=== PATIENT | male | born 1975 ===

== ENCOUNTER 2016-05-19 10:57 | Day surgery (SDC) | payer SELFPAY ==
[2016-05-19 12:22] VITALS: BMI 29.2
[2016-05-19] MEDS ORDERED: Lactated Ringer's 500 ML IV ONE (12:27)
[2016-05-19] MEDS ORDERED: Propofol 10 mg/ml Inj (20 ML) ONE (13:15)
[2016-05-19 14:04] VITALS: TEMP 97
[2016-05-19 14:10] VITALS: BP 101/67; PULSE 63; RESP 17; O2SAT 99
== END 2016-05-19 14:15 | disposition home or self-care (01) ==
LOC: H.ENDO 10:57
PROVIDERS: ATTEND Internal Medicine Gastroenterology
DX: K57.41 Diverticulitis of both small and large intestine with perforation and abscess with bleeding (principal); Z93.3 Colostomy status; K64.8 Other hemorrhoids; Z01.818 Encounter for other preprocedural examination; K44.9 Diaphragmatic hernia without obstruction or gangrene; K29.70 Gastritis, unspecified, without bleeding; R10.13 Epigastric pain

== ENCOUNTER 2016-07-01 05:57 | Inpatient (IN) | payer SELFPAY ==
[2016-06-26 09:49] VITALS: BMI 28.8
[2016-07-01] MEDS ORDERED: Lactated Ringer's 1,000 ML IV ONE ×4 (06:50→10:30)
[2016-07-01] MEDS ORDERED: Propofol 10 mg/ml Inj (20 ML) ONE ×3 (07:09→09:00)
[2016-07-01] MEDS ORDERED: ePHEDrine 50 mg/ml Inj ONE (07:09)
[2016-07-01] MEDS ORDERED: Lidocaine 4% (Laryng-O-Jet) Kit MM ONE (07:11)
[2016-07-01] MEDS ORDERED: Rocuronium 10 mg/ml (5 ml) ONE ×2 (07:11→08:54)
[2016-07-01] MEDS ORDERED: Succinylcholine 200 mg/10 ml Inj IV ONE (07:11)
[2016-07-01] MEDS ORDERED: Midazolam 2 MG/2 ML VIAL ONE (07:11)
[2016-07-01] MEDS ORDERED: Bupivacaine 0.5% Inj(30mL) ONE (07:18)
[2016-07-01] MEDS ORDERED: Lidocaine 1% Inj (20ml) ONE (07:18)
[2016-07-01] MEDS ORDERED: metroNIDAZOLE 500mg/100ml NS 100 ML IVPB ONE (07:46)
[2016-07-01] MEDS ORDERED: metroNIDAZOLE 500mg/100ml NS IVPB ONE ×2 (07:50→07:55)
[2016-07-01] MEDS ORDERED: Dexamethasone 4 mg/1 ml ONE (08:07)
[2016-07-01] MEDS ORDERED: Neostigmine Methylsulfate 3mg/3ml Syringe IV ONE (09:48)
[2016-07-01] MEDS ORDERED: HYDROmorphone 0.5 mg/0.5 ml ISec ONE (10:48)
[2016-07-01] MEDS ORDERED: Sodium Chloride 0.9% 1,000 ML IV ONE (10:51)
[2016-07-01] MEDS ORDERED: Lactated Ringer's 1,000 ML IV SCH ×2 (10:54→11:00)
[2016-07-01] MEDS ORDERED: HYDROmorphone 0.5 mg/0.5 ml ISec IVP PRN (10:54)
[2016-07-01] MEDS: HYDROmorphone 0.5 mg/0.5 ml ISec IVP PRN ×6 (10:55→11:50)
[2016-07-01] MEDS ORDERED: Naloxone 0.4 mg/ml Inj (Adult) IVP PRN (10:56)
[2016-07-01] MEDS ORDERED: DiphenhydrAMINE 50 mg/ml Inj ONE (11:55)
[2016-07-01] MEDS ORDERED: DiphenhydrAMINE 50 mg/ml Inj IVP ONE (12:00)
--- NOTE | 2016-07-01 12:49 | PCM.SURG1 ---
Surgeon's Initial Post Op Note - Surgeon's Notes Surgeon: Dr Verduzco Social Secretary: Dr Deluna, Dr Slaughter PGY2, Dr Clark PGY1 Type of Anesthesia: General Endo Pre-Operative Diagnosis: s/p Bear's Operative Findings: see report Post-Operative Diagnosis: s/p colostomy reversal Operation Performed: reversal of Bear's procedure Specimen/Specimens Removed: colostomy Estimated Blood Loss: EBL {In ML}: 100 Blood Products Given: N/A Drains Used: No Drains Post-Op Condition: Good Date of Surgery/Procedure: 07/01/16 Time of Surgery/Procedure: 12:48
[2016-07-01 16:13] LABS: EOS % 0.1 % (0.0-4.0); HEMATOCRIT 39.8 % (35.0-51.0); LYMPH # 0.5 K/uL (1.0-4.3); MEAN CELL VOLUME 84.4 fl (80.0-94.0); MEAN CORPUSCULAR HEMOGLOBIN 29.2 pg (27.0-31.0); MEAN CORPUSCULAR HGB CONC 34.6 g/dL (33.0-37.0); MONO # 0.3 K/uL (0.0-0.8); MONO % 2.6 % (0.0-10.0); NEUT # 10.7 K/uL (1.8-7.0); NEUT % 93.3 % (50.0-75.0); PLATELET COUNT 197 K/uL (130-400); RED CELL DISTRIBUTION WIDTH 13.3 % (11.5-14.5); WHITE BLOOD COUNT 11.4 K/uL (4.8-10.8)
[2016-07-01 18:57] LABS: NEUTROPHIL 85 % (42-75); TOTAL CELLS COUNTED 100
[2016-07-02] MEDS ORDERED: metroNIDAZOLE 500mg/100ml NS 100 ML IVPB SCH (01:00)
[2016-07-02] MEDS ORDERED: ceFAZolin 2 GM in Sodium Chloride 0.9% 100 ML IVPB SCH (01:00)
[2016-07-02 07:41] LABS: ALB/GLOB RATIO 1.4 (1.0-2.1); ALKALINE PHOSPHATASE 52 U/L (38-126); ALT/SGPT 54 U/L (21-72); AST/SGOT 38 U/L (17-59); BILIRUBIN,TOTAL 0.9 mg/dl (0.2-1.3); BLOOD UREA NITROGEN 16 mg/dl (9-20); CALCIUM 8.4 mg/dL (8.4-10.2); CARBON DIOXIDE 26 mmol/L (22-30); CHLORIDE 100 mmol/L (98-107); GFR AFRICAN-AMERICAN > 60; GLUCOSE,RANDOM 93 mg/dL (75-110); POTASSIUM 4.1 MMOL/L (3.6-5.0); SODIUM 137 mmol/l (132-148); TOTAL PROTEIN 6.3 G/DL (6.3-8.2)
[2016-07-02] MEDS ORDERED: DiphenhydrAMINE 50 mg/ml Inj ONE ×2 (09:00→21:10)
[2016-07-02] MEDS ORDERED: Enoxaparin 40 mg Syringe ONE (09:00)
[2016-07-03] MEDS: Dextrose 5%/0.45% NS 1,000 ML IV SCH ×3 (04:12→20:40)
[2016-07-03] MEDS: DiphenhydrAMINE 50 mg/ml Inj IVP PRN ×3 (04:31→20:36)
[2016-07-03 07:34] LABS: BASO % 0.4 % (0.0-2.0); EOS # 0.2 K/uL (0.0-0.7); EOS % 2.7 % (0.0-4.0); HEMATOCRIT 34.7 % (35.0-51.0); LYMPH # 1.9 K/uL (1.0-4.3); LYMPH % 22.9 % (20.0-40.0); MEAN CELL VOLUME 85.3 fl (80.0-94.0); MEAN CORPUSCULAR HEMOGLOBIN 29.5 pg (27.0-31.0); MEAN CORPUSCULAR HGB CONC 34.5 g/dL (33.0-37.0); MEAN PLATELET VOLUME 7.9 fl (7.2-11.7); MONO # 0.8 K/uL (0.0-0.8); MONO % 9.8 % (0.0-10.0); NEUT # 5.2 K/uL (1.8-7.0); NEUT % 64.2 % (50.0-75.0); RED CELL DISTRIBUTION WIDTH 13.6 % (11.5-14.5); WHITE BLOOD COUNT 8.1 K/uL (4.8-10.8)
[2016-07-03 07:50] LABS: ALB/GLOB RATIO 1.3 (1.0-2.1); ALKALINE PHOSPHATASE 49 U/L (38-126); ALT/SGPT 48 U/L (21-72); AST/SGOT 31 U/L (17-59); BILIRUBIN,TOTAL 0.9 mg/dl (0.2-1.3); BLOOD UREA NITROGEN 11 mg/dl (9-20); CALCIUM 7.9 mg/dL (8.4-10.2); CARBON DIOXIDE 28 mmol/L (22-30); CHLORIDE 100 mmol/L (98-107); GFR AFRICAN-AMERICAN > 60; GLUCOSE,RANDOM 97 mg/dL (75-110); POTASSIUM 3.5 MMOL/L (3.6-5.0); SODIUM 137 mmol/l (132-148); TOTAL PROTEIN 5.8 G/DL (6.3-8.2)
[2016-07-03] MEDS ORDERED: Potassium Chloride 20 mEq ER Tab PO ONE (08:02)
--- NOTE | 2016-07-03 08:06 | CP.PCM.PN ---
<Elise Estrella - Last Filed: 07/03/16 08:03> Subjective - Date & Time of Evaluation Date of Evaluation: 07/02/16 Time of Evaluation: 08:03 - Subjective Subjective: General Surgery - Dr. Verduzco Pt S&E. JURGEN. Pt complains of abdominal pain this morning, states he was afraid to use INDUSTRIAL ROOF PLUMBER as it was making him itchy. Benadryl ordered and pt. encouraged to use INDUSTRIAL ROOF PLUMBER if having pain. He denies any N/V, F/C, SOB/Cp. Amaya had 2000cc urine overnight. Objective - Vital Signs/Intake and Output Vital Signs (last 24 hours): Temp Pulse Resp BP Pulse Ox 98.5 F 81 18 102/64 96 07/03/16 07:49 07/03/16 07:49 07/03/16 07:49 07/03/16 07:49 07/03/16 07:49 - Medications Medications: Current Medications Diphenhydramine HCl (Benadryl) 25 mg IVP Q6 PRN PRN Reason: Itching / Pruritus Last Admin: 07/03/16 04:31 Dose: 25 mg Enoxaparin Sodium (Lovenox) 40 mg SC DAILY ANTONIO PRN Reason: Protocol Hydromorphone HCl (Dilaudid 0.2 Mg/Ml Filenet P8 Developer) 0 mg IV PRN PRN; Protocol PRN Reason: Pain, moderate (4-7) Stop: 07/03/16 10:10 Last Admin: 07/03/16 05:48 Dose: 6 mg Dextrose/Sodium Chloride (Dextrose 5%/0.45% Ns 1000 Ml) 1,000 mls @ 125 mls/hr IV .Q8H [facility] Stop: 07/04/16 03:17 Last Admin: 07/03/16 04:12 Dose: 125 mls/hr Ketorolac Tromethamine (Toradol) 30 mg IVP Q6 ANTONIO Naloxone HCl (Narcan) 0.1 mg IVP Q2M PRN PRN Reason: Opiate reversal Ondansetron HCl (Zofran Inj) 4 mg IVP Q4 PRN PRN Reason: Nausea/Vomiting Potassium Chloride (K-Dur 20 Meq Er Tab) 40 meq PO ONCE ONE Stop: 07/03/16 08:03 - Labs Labs: 07/03/16 06:50 07/03/16 06:50 - Constitutional Appears: No Acute Distress - Head Exam Head Exam: ATRAUMATIC - ENT Exam ENT Exam: Mucous Membranes Moist - Respiratory Exam Respiratory Exam: NORMAL BREATHING PATTERN. absent: Respiratory Distress - Cardiovascular Exam Cardiovascular Exam: REGULAR RHYTHM - GI/Abdominal Exam GI & Abdominal Exam: Soft, Tenderness (pelvic, appropriately). absent: Distended, Guarding, Rigid, Rebound - Neurological Exam Neurological Exam: Alert, Oriented x3 - Psychiatric Exam Psychiatric exam: Normal Affect, Normal Mood - Skin Skin Exam: Dry, Intact Assessment and Plan - Assessment and Plan (Free Text) Assessment: 41 yo m POD #1 s/p Colostomy reversal -Clear liquid diet -D/C Amaya -Renew INDUSTRIAL ROOF PLUMBER for pain and Benadryl prn for itching -IVF switched to D5 1/2 NS @125/hr -Lovenox -Encourage OOB/Incentive Spirometer DW Dr Luba Estrella PGY2 <Fazal Verduzco - Last Filed: 07/03/16 10:03> Subjective - Subjective Subjective: Patient was seen and examined at the bedside. Agree with resident's note above Objective - Vital Signs/Intake and Output Vital Signs (last 24 hours): Temp Pulse Resp BP Pulse Ox 98.5 F 81 18 102/64 96 07/03/16 07:49 07/03/16 07:49 07/03/16 07:49 07/03/16 07:49 07/03/16 07:49 - Medications Medications: Current Medications Diphenhydramine HCl (Benadryl) 25 mg IVP Q6 PRN PRN Reason: Itching / Pruritus Last Admin: 07/03/16 04:31 Dose: 25 mg Enoxaparin Sodium (Lovenox) 40 mg SC DAILY ANTONIO PRN Reason: Protocol Hydromorphone HCl (Dilaudid 0.2 Mg/Ml Filenet P8 Developer) 0 mg IV PRN PRN; Protocol PRN Reason: Pain, moderate (4-7) Stop: 07/03/16 10:10 Last Admin: 07/03/16 05:48 Dose: 6 mg Dextrose/Sodium Chloride (Dextrose 5%/0.45% Ns 1000 Ml) 1,000 mls @ 125 mls/hr IV .Q8H ANTONIO Stop: 07/04/16 03:17 Last Admin: 07/03/16 04:12 Dose: 125 mls/hr Ketorolac Tromethamine (Toradol) 30 mg IVP Q6 ANTONIO Naloxone HCl (Narcan) 0.1 mg IVP Q2M PRN PRN Reason: Opiate reversal Ondansetron HCl (Zofran Inj) 4 mg IVP Q4 PRN PRN Reason: Nausea/Vomiting - Labs Labs: 07/03/16 06:50 07/03/16 06:50
--- NOTE | 2016-07-03 08:09 | CP.PCM.PN ---
<Elise Estrella - Last Filed: 07/03/16 08:06> Subjective - Date & Time of Evaluation Date of Evaluation: 07/03/16 Time of Evaluation: 08:06 - Subjective Subjective: General Surgery - Dr. Verduzco Pt S&E. JURGEN. Pt complains of lower abdominal pain, understands to use VISUAL EDUCATOR when having pain. He tolerated liquid diet yesterday. He has not been ambulating much. No flatus or BM yet. No N/V, F/C, SOB/Cp. Objective - Vital Signs/Intake and Output Vital Signs (last 24 hours): Temp Pulse Resp BP Pulse Ox 98.5 F 81 18 102/64 96 07/03/16 07:49 07/03/16 07:49 07/03/16 07:49 07/03/16 07:49 07/03/16 07:49 - Medications Medications: Current Medications Diphenhydramine HCl (Benadryl) 25 mg IVP Q6 PRN PRN Reason: Itching / Pruritus Last Admin: 07/03/16 04:31 Dose: 25 mg Enoxaparin Sodium (Lovenox) 40 mg SC DAILY ANTONIO PRN Reason: Protocol Hydromorphone HCl (Dilaudid 0.2 Mg/Ml Institutional Research Director) 0 mg IV PRN PRN; Protocol PRN Reason: Pain, moderate (4-7) Stop: 07/03/16 10:10 Last Admin: 07/03/16 05:48 Dose: 6 mg Dextrose/Sodium Chloride (Dextrose 5%/0.45% Ns 1000 Ml) 1,000 mls @ 125 mls/hr IV .Q8H [facility] Stop: 07/04/16 03:17 Last Admin: 07/03/16 04:12 Dose: 125 mls/hr Ketorolac Tromethamine (Toradol) 30 mg IVP Q6 ANTONIO Naloxone HCl (Narcan) 0.1 mg IVP Q2M PRN PRN Reason: Opiate reversal Ondansetron HCl (Zofran Inj) 4 mg IVP Q4 PRN PRN Reason: Nausea/Vomiting Potassium Chloride (K-Dur 20 Meq Er Tab) 40 meq PO ONCE ONE Stop: 07/03/16 08:03 - Labs Labs: 07/03/16 06:50 07/03/16 06:50 - Constitutional Appears: No Acute Distress - Head Exam Head Exam: ATRAUMATIC, NORMAL INSPECTION, NORMOCEPHALIC - Eye Exam Eye Exam: Normal appearance - ENT Exam ENT Exam: Mucous Membranes Moist - Respiratory Exam Respiratory Exam: absent: Respiratory Distress - Cardiovascular Exam Cardiovascular Exam: REGULAR RHYTHM - GI/Abdominal Exam GI & Abdominal Exam: Soft, Tenderness (suprapubic and incisional). absent: Distended, Firm, Guarding, Rebound - Neurological Exam Neurological Exam: Alert, Oriented x3 - Psychiatric Exam Psychiatric exam: Normal Affect, Normal Mood - Skin Skin Exam: Dry, Intact Assessment and Plan - Assessment and Plan (Free Text) Assessment: 41 yo M s/p Colostomy reversal, POD #2 -Continue VISUAL EDUCATOR for pain, will add Toradol atc -Benadryl prn for itching -Clear liquids, monitor for bowel function -Encourage OOB/Ambulation and incentive spirometer DW Dr. uLba Estrella PGY2 <Fazal Verduzco - Last Filed: 07/03/16 10:04> Subjective - Date & Time of Evaluation Time of Evaluation: 09:15 - Subjective Subjective: Patient was seen and examined at the bedside. Agree with resident's note above Objective - Vital Signs/Intake and Output Vital Signs (last 24 hours): Temp Pulse Resp BP Pulse Ox 98.5 F 81 18 102/64 96 07/03/16 07:49 07/03/16 07:49 07/03/16 07:49 07/03/16 07:49 07/03/16 07:49 - Medications Medications: Current Medications Diphenhydramine HCl (Benadryl) 25 mg IVP Q6 PRN PRN Reason: Itching / Pruritus Last Admin: 07/03/16 04:31 Dose: 25 mg Enoxaparin Sodium (Lovenox) 40 mg SC DAILY ANTONIO PRN Reason: Protocol Hydromorphone HCl (Dilaudid 0.2 Mg/Ml Institutional Research Director) 0 mg IV PRN PRN; Protocol PRN Reason: Pain, moderate (4-7) Stop: 07/03/16 10:10 Last Admin: 07/03/16 05:48 Dose: 6 mg Dextrose/Sodium Chloride (Dextrose 5%/0.45% Ns 1000 Ml) 1,000 mls @ 125 mls/hr IV .Q8H [facility] Stop: 07/04/16 03:17 Last Admin: 07/03/16 04:12 Dose: 125 mls/hr Ketorolac Tromethamine (Toradol) 30 mg IVP Q6 ANTONIO Naloxone HCl (Narcan) 0.1 mg IVP Q2M PRN PRN Reason: Opiate reversal Ondansetron HCl (Zofran Inj) 4 mg IVP Q4 PRN PRN Reason: Nausea/Vomiting - Labs Labs: 07/03/16 06:50 07/03/16 06:50
--- NOTE | 2016-07-03 09:44 | OP ---
PROCEDURE DATE: 07/01/2016 PREOPERATIVE DIAGNOSES: Colostomy and diverticular disease. POSTOPERATIVE DIAGNOSES: Colostomy and diverticular disease. PROCEDURE: Reversal of Bear procedure. SURGEON: Fazal Verduzco MD TOWN PLANNER: Mikie. SECOND TOWN PLANNER: Kasandra. THIRD TOWN PLANNER: . ANESTHESIA: General with endotracheal intubation. INTRAVENOUS FLUIDS: Crystalloids. ESTIMATED BLOOD LOSS: 100 mL. INTRAOPERATIVE FINDINGS: satisfactory anastomosis and intraabdominal adhesions. SPECIMEN: Colostomy. BRIEF HISTORY: The patient is a very pleasant 41-year-old gentleman who is well known to me from [facility] or surgeries that included laparoscopic cholecystectomy and in March of this year he presented to the hospital with perforated diverticulitis and free air on a CAT scan and was taken emergently to [facility] operating room and underwent a Bear procedure. Over the course of time, the patient did well. He underwent colonoscopy that did not reveal any pathology and presented to my office for reversal o f his colostomy. All the risks and benefits of the procedure were explained to the patient and with the patient having a full understanding of all the risks and benefits involved, informed consent was obtained and the patient was taken to the operating room for above stated procedure. PROCEDURE: The patient was brought into the operating room and placed supine on the operating table. Bilateral Flowtron boots were applied to the patient's lower extremities. After successful inducti on of anesthesia and successful endotracheal intubation by the anesthesia team, a Amaya catheter was inserted into the patient's urinary bladder and the patient was placed in a lithotomy position. The colostomy was closed with 2-0 nylon suture in a running locking fashion and at that point in time, [facility] patient's abdomen was shaved and prepped with Betadine and the perineal area was prepped with Betad ine and the abdomen was prepped with ChloraPrep and the patient was draped in the standard surgical f ashion. Prior to the beginning of the procedure, the patient received prophylactic antibiotics and a t that point in time, a time-out was called in the room and everyone in the room were in agreement. Using a 10 blade scalpel knife, the incision was made through the prior scar from prior laparotomy ex tending from the umbilicus, around the umbilicus on the right side and going down towards the pelvis in a longitudinal fashion. Once this was accomplished, dissection was carried down with electrical c autery until the fascial layer was visualized. The fascia was transected and 2 Araceli clamps were dominique agustina on 2 ends of the fascia, and at that point in time, the wound was completely opened. We encounte red some intraabdominal adhesions to the anterior abdominal wall that were taken down bluntly as well as sharply with Metzenbaum scissor and electrical cautery. At that point in time, the entire length of the incision was opened up and attention was turned to the pelvis. We were able to identif y the rectal stump. At that point in time, our attention was turned to the area of the colostomy and using electrical cautery the colostomy was incised in a circumferential fashion until the fascial la yecenia was visualized. Once the fascia was visualized, the colostomy was fully freed up and reduced int o the abdominal cavity. At that point in time, the end of the colostomy was taken with a 75 mm blue load BRITTANEY stapler and passed off to the [place] stand as a specimen. Once this was accomplished, I had t o mobilize the left colon along the white line of Toldt towards the splenic flexure and once th is was accomplished, the rectal stump and the descending colon were approximated together and there a ppeared to be no tension. At that point in time, using 3-0 silk suture, the descending colon and the rectal stump were approximated together with 3 interrupted sutures in a [id number] fashion and onc e this was accomplished, 2 enterotomies were made, 1 in the rectum and 1 in descending colon and at t hat point in time, Allis clamps were introduced into the bowel lumens. At that point in time, a 75 m m blue load BRITTANEY stapler was introduced into the lumens of the bowel and the stapler was fired. Anast omotic line was inspected for hemostasis, and it appeared to be satisfactory and the defect was close d with a blue load 60 TA stapler and once this was accomplished, running 3-0 chromic stitch was used in order to reinforce the staple line. At that point in time, the anastomosis was inspected and appe ared to be satisfactory without any tension. Then, our attention was turned to the abdominal wall in the area of the colostomy. Two rtvavz-hu-jrihy sutures with #1 PDS were placed from the inside to c lose the colostomy hole defect and 2 imxxcm-ii-phchx sutures with #1 PDS were used on the outside as well as 2 interrupted #1 PDS sutures to close the fascial defect. Once this was accomplished, our at tention was turned to the midline laparotomy incision. We had to raise a little bit of skin flaps in order to do a proper closure and the fascial layer was closed with #1 loop PDS, 1 from above, 1 from below and tied in the middle. Once this was accomplished, both wounds were copiously irrigated and dried and the arsenio were applied to the incision. The patient's abdomen was washed and dried and a clean dressing with 4 x 4's, ABD, and silk tape were applied to the abdominal wall. The patient was successfully extubated by the anesthesia team, placed in a supine position and transferred to the [facility] and taken to the recovery room in a stable condition. At the end of the procedure, all instr ument counts, needles and sponges were correct. Faazl Verduzco MD cc: [id number] TT: 07/01/2016 18:24:14 [email or web address]
[2016-07-03] MEDS: Enoxaparin 40 mg Syringe SC SCH (10:42)
[2016-07-03 15:25] LABS: HEMATOCRIT 35.6 % (35.0-51.0); WHITE BLOOD COUNT 11.7 K/uL (4.8-10.8)
[2016-07-03 15:26] LABS: BASO % 0.1 % (0.0-2.0); LYMPH % 11.5 % (20.0-40.0); MEAN CORPUSCULAR HEMOGLOBIN 29.2 pg (27.0-31.0); MEAN CORPUSCULAR HGB CONC 34.7 g/dL (33.0-37.0); MEAN PLATELET VOLUME 8.3 fl (7.2-11.7); NEUT # 9.4 K/uL (1.8-7.0); NEUT % 80.4 % (50.0-75.0); NRBC % 0.1 % (0.0-0.0); RED CELL DISTRIBUTION WIDTH 13.4 % (11.5-14.5)
[2016-07-03 15:27] LABS: LYMPH # 1.4 K/uL (1.0-4.3); MONO # 0.9 K/uL (0.0-0.8)
--- NOTE | 2016-07-04 07:47 | CP.PCM.PN ---
Subjective - Date & Time of Evaluation Date of Evaluation: 07/04/16 Time of Evaluation: 07:45 - Subjective Subjective: General Surgery Progress Note for Dr. Wade This 41M was seen and examined this Am at bedside. He reports no acute events overnight. He continues to complain of lower abdominal pain. He is tolerating liquid diet. Yesterday he reports that has has walked and sat in his chair. No flatus or BM yet. No N/V, F/C, SOB/Cp. Objective - Vital Signs/Intake and Output Vital Signs (last 24 hours): Temp Pulse Resp BP Pulse Ox 98.4 F 76 15 100/65 97 07/04/16 01:20 07/04/16 01:20 07/04/16 01:20 07/04/16 01:20 07/04/16 01:20 Intake and Output: 07/04/16 07/04/16 06:59 18:59 Intake Total 1700 Output Total 450 Balance 1250 - Medications Medications: Current Medications Diphenhydramine HCl (Benadryl) 25 mg IVP Q6 PRN PRN Reason: Itching / Pruritus Last Admin: 07/03/16 20:36 Dose: 25 mg Enoxaparin Sodium (Lovenox) 40 mg SC DAILY ANTONIO PRN Reason: Protocol Last Admin: 07/03/16 10:42 Dose: 40 mg Ketorolac Tromethamine (Toradol) 30 mg IVP Q6 [facility] Last Admin: 07/04/16 04:40 Dose: 30 mg Naloxone HCl (Narcan) 0.1 mg IVP Q2M PRN PRN Reason: Opiate reversal Ondansetron HCl (Zofran Inj) 4 mg IVP Q4 PRN PRN Reason: Nausea/Vomiting Last Admin: 07/03/16 10:42 Dose: 4 mg - Labs Labs: 07/03/16 06:50 07/03/16 06:50 - Constitutional Appears: No Acute Distress - Head Exam Head Exam: ATRAUMATIC, NORMAL INSPECTION, NORMOCEPHALIC - Eye Exam Eye Exam: Normal appearance - ENT Exam ENT Exam: Mucous Membranes Moist - Respiratory Exam Respiratory Exam: absent: Respiratory Distress - Cardiovascular Exam Cardiovascular Exam: REGULAR RHYTHM - GI/Abdominal Exam GI & Abdominal Exam: Soft, Tenderness (suprapubic and incisional). absent: Distended, Firm, Guarding, Rebound Bandage wet with serosangiunous drainage, dressing changed at bedside this AM. Wound eges well aproximated non erythematous - Neurological Exam Neurological Exam: Alert, Oriented x3 - Psychiatric Exam Psychiatric exam: Normal Affect, Normal Mood - Skin Skin Exam: Dry, Intact Assessment and Plan - Assessment and Plan (Free Text) Assessment: 41 yo M s/p Colostomy reversal, POD #3 -Continue pain control -Clear liquids, monitor for bowel function -Encourage OOB/Ambulation and incentive spirometer Will discuss with Dr. Mauro Shrestha PGY-1
[2016-07-04 08:20] LABS: BASO % 0.2 % (0.0-2.0); EOS # 0.3 K/uL (0.0-0.7); EOS % 4.4 % (0.0-4.0); HEMATOCRIT 34.9 % (35.0-51.0); LYMPH # 1.6 K/uL (1.0-4.3); LYMPH % 21.8 % (20.0-40.0); MEAN CELL VOLUME 85.1 fl (80.0-94.0); MEAN CORPUSCULAR HEMOGLOBIN 29.7 pg (27.0-31.0); MEAN CORPUSCULAR HGB CONC 34.9 g/dL (33.0-37.0); MEAN PLATELET VOLUME 8.2 fl (7.2-11.7); MONO # 0.7 K/uL (0.0-0.8); MONO % 8.7 % (0.0-10.0); NEUT # 4.9 K/uL (1.8-7.0); NEUT % 64.9 % (50.0-75.0); RED CELL DISTRIBUTION WIDTH 13.6 % (11.5-14.5); WHITE BLOOD COUNT 7.5 K/uL (4.8-10.8)
[2016-07-04 08:39] LABS: ALB/GLOB RATIO 1.3 (1.0-2.1); ALKALINE PHOSPHATASE 52 U/L (38-126); ALT/SGPT 53 U/L (21-72); AST/SGOT 41 U/L (17-59); BILIRUBIN,TOTAL 1.1 mg/dl (0.2-1.3); BLOOD UREA NITROGEN 7 mg/dl (9-20); CALCIUM 8.1 mg/dL (8.4-10.2); CARBON DIOXIDE 30 mmol/L (22-30); CHLORIDE 100 mmol/L (98-107); GFR AFRICAN-AMERICAN > 60; GLUCOSE,RANDOM 96 mg/dL (75-110); POTASSIUM 3.5 MMOL/L (3.6-5.0); SODIUM 139 mmol/l (132-148); TOTAL PROTEIN 5.9 G/DL (6.3-8.2)
[2016-07-04] MEDS: Enoxaparin 40 mg Syringe SC SCH (10:44)
[2016-07-04] MEDS: Oxycodone/Acetaminophen 5/325 mg Tab PO PRN ×2 (14:35→20:07)
--- NOTE | 2016-07-05 02:28 | CP.PCM.PN ---
Subjective - Date & Time of Evaluation Date of Evaluation: 07/05/16 Time of Evaluation: 02:25 - Subjective Subjective: SURGERY NOTE 41M seen and examined at bedside. Patient states he does have pain in the midline which is same as yesterday, unimproved. Complains of nauseas with liquids but no vomiting. He admits to recently passing gas and had two small bowel movements last night coated with small amount of blood as per nurse. States he is using incentive spirometer and has been ambulating. Objective - Vital Signs/Intake and Output Vital Signs (last 24 hours): Temp Pulse Resp BP Pulse Ox 99.1 F 61 20 98/61 L 95 07/05/16 00:16 07/05/16 00:16 07/05/16 00:16 07/05/16 00:16 07/05/16 00:16 - Medications Medications: Current Medications Diphenhydramine HCl (Benadryl) 25 mg IVP Q6 PRN PRN Reason: Itching / Pruritus Last Admin: 07/03/16 20:36 Dose: 25 mg Enoxaparin Sodium (Lovenox) 40 mg SC DAILY ANTONIO PRN Reason: Protocol Last Admin: 07/04/16 10:44 Dose: 40 mg Ketorolac Tromethamine (Toradol) 30 mg IVP Q6 ANTONIO Last Admin: 07/04/16 22:33 Dose: 30 mg Naloxone HCl (Narcan) 0.1 mg IVP Q2M PRN PRN Reason: Opiate reversal Ondansetron HCl (Zofran Inj) 4 mg IVP Q4 PRN PRN Reason: Nausea/Vomiting Last Admin: 07/04/16 09:17 Dose: 4 mg Oxycodone/Acetaminophen (Percocet 5/325 Mg Tab) 1 tab PO Q4 PRN PRN Reason: Pain, moderate (4-7) Stop: 07/07/16 12:21 Oxycodone/Acetaminophen (Percocet 5/325 Mg Tab) 2 tab PO Q4 PRN PRN Reason: Pain, severe (8-10) Stop: 07/07/16 12:21 Last Admin: 07/04/16 20:07 Dose: 2 tab - Labs Labs: 07/04/16 05:30 07/04/16 05:30 - Constitutional Appears: Non-toxic, No Acute Distress - Head Exam Head Exam: ATRAUMATIC - Respiratory Exam Respiratory Exam: Clear to Ausculation Bilateral, NORMAL BREATHING PATTERN - Cardiovascular Exam Cardiovascular Exam: REGULAR RHYTHM, +S1, +S2 - GI/Abdominal Exam GI & Abdominal Exam: Soft, Tenderness. absent: Distended, Firm, Guarding, Rigid , Rebound Additional comments: abdomen more firm around area of previous stoma. previous stoma incision currently draining serosang fluid from one portion of incision. Q-tip was advanced about 7cm through incision. Midline incision on inferior pole q-tip was able to be advanced 2cm arsenio in place. dressing changed - Neurological Exam Neurological Exam: Alert, Awake - Skin Skin Exam: Dry, Intact, Normal Color, Warm Assessment and Plan - Assessment and Plan (Free Text) Assessment: 41 yo M s/p Colostomy reversal, POD #4 -adjust pain control -Clear liquids, monitor for bowel function -Encourage OOB/Ambulation and incentive spirometer -Attending to re-evaluate patient in AM Further recs discuss with Dr. Mauro Tony, PGY1
[2016-07-05] MEDS: Oxycodone/Acetaminophen 5/325 mg Tab PO PRN ×3 (08:09→20:02)
[2016-07-05] MEDS: Enoxaparin 40 mg Syringe SC SCH (08:10)
[2016-07-06] MEDS: Oxycodone/Acetaminophen 5/325 mg Tab PO PRN ×2 (01:06→16:02)
--- NOTE | 2016-07-06 08:37 | CP.PCM.PN ---
<SameerElise - Last Filed: 07/06/16 08:35> Subjective - Date & Time of Evaluation Date of Evaluation: 07/06/16 Time of Evaluation: 08:35 - Subjective Subjective: General Surgery. Dr Verduzco Pt S&E. Overnight pt states that his pain got worse after eating regular food. He denies any N/V, F/C, SOB/Cp. He states he was passing flatus and having BMs yesterday but no further since regular diet. Pt requests to be switched back to a liquid diet for now. He has been OOB and ambulating. Objective - Vital Signs/Intake and Output Vital Signs (last 24 hours): Temp Pulse Resp BP Pulse Ox 98.2 F 54 L 20 99/60 L 99 07/06/16 02:00 07/06/16 02:00 07/06/16 02:00 07/06/16 02:00 07/06/16 02:00 - Medications Medications: Current Medications Diphenhydramine HCl (Benadryl) 25 mg IVP Q6 PRN PRN Reason: Itching / Pruritus Last Admin: 07/03/16 20:36 Dose: 25 mg Enoxaparin Sodium (Lovenox) 40 mg SC DAILY ANTONIO PRN Reason: Protocol Last Admin: 07/05/16 08:10 Dose: 40 mg Ketorolac Tromethamine (Toradol) 30 mg IVP Q6 ANTONIO Last Admin: 07/06/16 04:29 Dose: 30 mg Naloxone HCl (Narcan) 0.1 mg IVP Q2M PRN PRN Reason: Opiate reversal Ondansetron HCl (Zofran Inj) 4 mg IVP Q4 PRN PRN Reason: Nausea/Vomiting Last Admin: 07/05/16 22:19 Dose: 4 mg Oxycodone/Acetaminophen (Percocet 5/325 Mg Tab) 2 tab PO Q4 PRN PRN Reason: Pain, moderate (4-7) Stop: 07/07/16 12:21 Potassium Chloride (K-Dur 20 Meq Er Tab) 40 meq PO DAILY ANTONIO - Labs Labs: 07/04/16 05:30 07/04/16 05:30 - Constitutional Appears: No Acute Distress - Head Exam Head Exam: ATRAUMATIC, NORMAL INSPECTION, NORMOCEPHALIC - Eye Exam Eye Exam: Normal appearance - Respiratory Exam Respiratory Exam: NORMAL BREATHING PATTERN. absent: Respiratory Distress - GI/Abdominal Exam GI & Abdominal Exam: Soft, Tenderness (mild ttp around inciisons, appropriate). absent: Distended, Guarding, Rebound Additional comments: surgical incisions with small amt serous drainage, arsenio intact, dressing changed - Neurological Exam Neurological Exam: Alert, Oriented x3 - Psychiatric Exam Psychiatric exam: Normal Affect, Normal Mood - Skin Skin Exam: Dry, Intact Assessment and Plan - Assessment and Plan (Free Text) Assessment: 41 yo M s/p Colostomy reversal, POD #5 -Liquid diet and monitor tolerance -Encourage OOB/Ambulation and incentive spirometer -Pain control -DVT px DW Dr Luba Estrella PGY2 <Fazal Verduzco - Last Filed: 07/06/16 10:15> Subjective - Date & Time of Evaluation Time of Evaluation: 09:40 - Subjective Subjective: Patient was seen and examined at the bedside. Agree with resident's note above Objective - Vital Signs/Intake and Output Vital Signs (last 24 hours): Temp Pulse Resp BP Pulse Ox 98.5 F 64 18 96/63 L 98 07/06/16 08:38 07/06/16 08:38 07/06/16 08:38 07/06/16 08:38 07/06/16 08:38 - Medications Medications: Current Medications Diphenhydramine HCl (Benadryl) 25 mg IVP Q6 PRN PRN Reason: Itching / Pruritus Last Admin: 07/03/16 20:36 Dose: 25 mg Ketorolac Tromethamine (Toradol) 30 mg IVP Q6 ANTONIO Last Admin: 07/06/16 09:59 Dose: 30 mg Naloxone HCl (Narcan) 0.1 mg IVP Q2M PRN PRN Reason: Opiate reversal Ondansetron HCl (Zofran Inj) 4 mg IVP Q4 PRN PRN Reason: Nausea/Vomiting Last Admin: 07/05/16 22:19 Dose: 4 mg Oxycodone/Acetaminophen (Percocet 5/325 Mg Tab) 2 tab PO Q4 PRN PRN Reason: Pain, moderate (4-7) Stop: 07/07/16 12:21 Potassium Chloride (K-Dur 20 Meq Er Tab) 40 meq PO DAILY ANTONIO Last Admin: 07/06/16 09:59 Dose: 40 meq - Labs Labs: 07/04/16 05:30 07/04/16 05:30 Assessment and Plan - Assessment and Plan (Free Text) Plan: - Clear liquid diet - Pain control - DVT ppx - Insentive spirometry - Out of bed and ambulate - Repeat labs in am
[2016-07-06] MEDS: Enoxaparin 40 mg Syringe SC SCH (09:56)
[2016-07-06] MEDS: Potassium Chloride 20 mEq ER Tab PO SCH (09:59)
[2016-07-06 10:07] LABS: BLOOD UREA NITROGEN 10 mg/dl (9-20); CALCIUM 8.9 mg/dL (8.4-10.2); CARBON DIOXIDE 27 mmol/L (22-30); CHLORIDE 101 mmol/L (98-107); GFR AFRICAN-AMERICAN > 60; GLUCOSE,RANDOM 93 mg/dL (75-110); POTASSIUM 4.4 MMOL/L (3.6-5.0); SODIUM 137 mmol/l (132-148)
[2016-07-07] MEDS: Oxycodone/Acetaminophen 5/325 mg Tab PO PRN (01:17)
--- NOTE | 2016-07-07 07:23 | CP.PCM.PN ---
<EstrellaElise gleason - Last Filed: 07/07/16 07:21> Subjective - Date & Time of Evaluation Date of Evaluation: 07/07/16 Time of Evaluation: 07:21 - Subjective Subjective: General Surgery - Dr. Verduzco Pt S&E. Pt states his pain is improved. He continues to have nausea throughout the night, denies any vomiting. Pt denies any flatus or BM last 24hrs. He has been OOB and ambulating the halls throughout the day. Tolerating liquid diet. No F/C, SOb/Cp. Objective - Vital Signs/Intake and Output Vital Signs (last 24 hours): Temp Pulse Resp BP Pulse Ox 98.4 F 60 16 100/63 97 07/06/16 23:00 07/06/16 23:00 07/06/16 23:00 07/06/16 23:00 07/06/16 23:00 Intake and Output: 07/07/16 07/07/16 06:59 18:59 Intake Total 450 Balance 450 - Medications Medications: Current Medications Diphenhydramine HCl (Benadryl) 25 mg IVP Q6 PRN PRN Reason: Itching / Pruritus Last Admin: 07/03/16 20:36 Dose: 25 mg Ketorolac Tromethamine (Toradol) 30 mg IVP Q6 [facility] Last Admin: 07/07/16 04:15 Dose: 30 mg Naloxone HCl (Narcan) 0.1 mg IVP Q2M PRN PRN Reason: Opiate reversal Ondansetron HCl (Zofran Inj) 4 mg IVP Q4 PRN PRN Reason: Nausea/Vomiting Last Admin: 07/06/16 22:41 Dose: 4 mg Oxycodone/Acetaminophen (Percocet 5/325 Mg Tab) 2 tab PO Q4 PRN PRN Reason: Pain, moderate (4-7) Stop: 07/07/16 12:21 Last Admin: 07/07/16 01:17 Dose: 2 tab Potassium Chloride (K-Dur 20 Meq Er Tab) 40 meq PO DAILY ANTONIO Last Admin: 07/06/16 09:59 Dose: 40 meq - Labs Labs: 07/04/16 05:30 07/06/16 09:35 - Constitutional Appears: No Acute Distress - Head Exam Head Exam: ATRAUMATIC, NORMAL INSPECTION, NORMOCEPHALIC - Eye Exam Eye Exam: Normal appearance - ENT Exam ENT Exam: Mucous Membranes Moist - Respiratory Exam Respiratory Exam: NORMAL BREATHING PATTERN. absent: Respiratory Distress - GI/Abdominal Exam GI & Abdominal Exam: Soft, Tenderness (mild ttp around incisions). absent: Distended, Guarding, Rebound Additional comments: midline and L mid abdominal incisions w/ arsenio and seropurulent drainage - Neurological Exam Neurological Exam: Alert, Oriented x3 - Psychiatric Exam Psychiatric exam: Normal Mood - Skin Skin Exam: Dry, Intact Assessment and Plan - Assessment and Plan (Free Text) Assessment: 41 yo M s/p Colostomy reversal, POD #6 -Continue liquid diet -Zofran prn for nausea -Encourage OOB/Ambulation and incentive spirometer -DVT px DW Dr Luba Estrella PGY2 <Fazal Verduzco - Last Filed: 07/07/16 18:34> Subjective - Date & Time of Evaluation Time of Evaluation: 18:25 - Subjective Subjective: Patient was seen and examined at the bedside. Agree with the resident's note above Objective - Vital Signs/Intake and Output Vital Signs (last 24 hours): Temp Pulse Resp BP Pulse Ox 98.8 F 97 H 18 99/65 L 100 07/07/16 16:19 07/07/16 16:19 07/07/16 16:19 07/07/16 16:19 07/07/16 16:19 Intake and Output: 07/07/16 07/07/16 06:59 18:59 Intake Total 450 Balance 450 - Medications Medications: Current Medications Diphenhydramine HCl (Benadryl) 25 mg IVP Q6 PRN PRN Reason: Itching / Pruritus Last Admin: 07/03/16 20:36 Dose: 25 mg Ketorolac Tromethamine (Toradol) 30 mg IVP Q6 ANTONIO Last Admin: 07/07/16 15:57 Dose: 30 mg Naloxone HCl (Narcan) 0.1 mg IVP Q2M PRN PRN Reason: Opiate reversal Ondansetron HCl (Zofran Inj) 4 mg IVP Q4 PRN PRN Reason: Nausea/Vomiting Last Admin: 07/07/16 17:25 Dose: 4 mg Oxycodone/Acetaminophen (Percocet 5/325 Mg Tab) 2 tab PO Q4 PRN PRN Reason: Pain, moderate (4-7) Stop: 07/10/16 15:48 Last Admin: 07/07/16 17:30 Dose: 2 tab - Labs Labs: 07/07/16 06:35 07/07/16 06:35
[2016-07-07 07:48] LABS: BASO % 0.4 % (0.0-2.0); EOS # 0.5 K/uL (0.0-0.7); EOS % 6.8 % (0.0-4.0); HEMATOCRIT 38.5 % (35.0-51.0); LYMPH # 2.1 K/uL (1.0-4.3); LYMPH % 29.2 % (20.0-40.0); MEAN CELL VOLUME 83.9 fl (80.0-94.0); MEAN CORPUSCULAR HEMOGLOBIN 29.4 pg (27.0-31.0); MEAN CORPUSCULAR HGB CONC 35.1 g/dL (33.0-37.0); MONO # 0.7 K/uL (0.0-0.8); MONO % 10.3 % (0.0-10.0); NEUT # 3.8 K/uL (1.8-7.0); NEUT % 53.3 % (50.0-75.0); NRBC % 0.1 % (0.0-0.0); RED CELL DISTRIBUTION WIDTH 13.7 % (11.5-14.5); WHITE BLOOD COUNT 7.2 K/uL (4.8-10.8)
[2016-07-07 07:58] LABS: BLOOD UREA NITROGEN 11 mg/dl (9-20); CALCIUM 8.9 mg/dL (8.4-10.2); CARBON DIOXIDE 27 mmol/L (22-30); CHLORIDE 100 mmol/L (98-107); GFR AFRICAN-AMERICAN > 60; GLUCOSE,RANDOM 85 mg/dL (75-110); POTASSIUM 4.6 MMOL/L (3.6-5.0); SODIUM 137 mmol/l (132-148)
[2016-07-07] MEDS: Potassium Chloride 20 mEq ER Tab PO SCH (09:29)
[2016-07-07] MEDS ORDERED: Oxycodone/Acetaminophen 5/325 mg Tab PO PRN (15:47)
[2016-07-08 07:34] LABS: BASO % 0.4 % (0.0-2.0); EOS # 0.6 K/uL (0.0-0.7); HEMATOCRIT 39.6 % (35.0-51.0); LYMPH # 1.9 K/uL (1.0-4.3); MEAN CELL VOLUME 85.1 fl (80.0-94.0); MEAN CORPUSCULAR HEMOGLOBIN 29.3 pg (27.0-31.0); MEAN CORPUSCULAR HGB CONC 34.4 g/dL (33.0-37.0); MONO # 0.8 K/uL (0.0-0.8); MONO % 8.3 % (0.0-10.0); NEUT # 6.3 K/uL (1.8-7.0); NEUT % 65.3 % (50.0-75.0); RED CELL DISTRIBUTION WIDTH 13.8 % (11.5-14.5); WHITE BLOOD COUNT 9.7 K/uL (4.8-10.8)
[2016-07-08 07:44] LABS: BLOOD UREA NITROGEN 14 mg/dl (9-20); CALCIUM 8.8 mg/dL (8.4-10.2); CARBON DIOXIDE 25 mmol/L (22-30); CHLORIDE 102 mmol/L (98-107); GFR AFRICAN-AMERICAN > 60; GLUCOSE,RANDOM 95 mg/dL (75-110); POTASSIUM 4.8 MMOL/L (3.6-5.0); SODIUM 138 mmol/l (132-148)
--- NOTE | 2016-07-08 08:05 | CP.PCM.PN ---
<Saleem Shrestha - Last Filed: 07/08/16 08:02> Subjective - Date & Time of Evaluation Date of Evaluation: 07/08/16 Time of Evaluation: 08:02 - Subjective Subjective: General Surgery Progress Note for Dr. Verduzco This 41M was seen and examined this AM at bedside. He reports no acute events overnight. He continues to complain of lower abdominal pain. He is tolerating liquid diet. Patient reports passing flatus and bowel movements yesterday. He also complains of odorous discharge from his right sided stoma closure. No N/V , F/C, SOB/Cp. Dressings with strike through drainage this AM changed at bedside during morning rounds. Objective - Vital Signs/Intake and Output Vital Signs (last 24 hours): Temp Pulse Resp BP Pulse Ox 98.2 F 63 18 103/66 100 07/08/16 07:46 07/08/16 07:46 07/08/16 07:46 07/08/16 07:46 07/08/16 07:46 - Medications Medications: Current Medications Diphenhydramine HCl (Benadryl) 25 mg IVP Q6 PRN PRN Reason: Itching / Pruritus Last Admin: 07/03/16 20:36 Dose: 25 mg Heparin Sodium (Porcine) (Heparin) 5,000 units SC Q8 ANTONIO PRN Reason: Protocol Last Admin: 07/08/16 01:30 Dose: 5,000 units Ketorolac Tromethamine (Toradol) 30 mg IVP Q6 ANTONIO Last Admin: 07/08/16 04:32 Dose: 30 mg Naloxone HCl (Narcan) 0.1 mg IVP Q2M PRN PRN Reason: Opiate reversal Ondansetron HCl (Zofran Inj) 4 mg IVP Q4 PRN PRN Reason: Nausea/Vomiting Last Admin: 07/07/16 21:56 Dose: 4 mg Oxycodone/Acetaminophen (Percocet 5/325 Mg Tab) 2 tab PO Q4 PRN PRN Reason: Pain, moderate (4-7) Stop: 07/10/16 15:48 Last Admin: 07/07/16 17:30 Dose: 2 tab - Labs Labs: 07/08/16 07:04 07/08/16 07:04 - Constitutional Appears: No Acute Distress - Head Exam Head Exam: ATRAUMATIC, NORMAL INSPECTION, NORMOCEPHALIC - Eye Exam Eye Exam: Normal appearance - ENT Exam ENT Exam: Mucous Membranes Moist - Respiratory Exam Respiratory Exam: absent: Respiratory Distress - Cardiovascular Exam Cardiovascular Exam: REGULAR RHYTHM - GI/Abdominal Exam GI & Abdominal Exam: Soft, Tenderness (suprapubic and incisional). absent: Distended, Firm, Guarding, Rebound Bandage wet with serosangiunous drainage, dressing changed at bedside this AM. Wound eges well aproximated non erythematous - Neurological Exam Neurological Exam: Alert, Oriented x3 - Psychiatric Exam Psychiatric exam: Normal Affect, Normal Mood - Skin Skin Exam: Dry, Intact Assessment and Plan - Assessment and Plan (Free Text) Assessment: 41 yo M s/p Colostomy reversal, POD #7 -Continue pain control -regular diet today, monitor for bowel function -Encourage OOB/Ambulation and incentive spirometer Will discuss with Dr. Luba Shrestha PGY-1 [phone] <Fazal Verduzco - Last Filed: 07/08/16 10:25> Subjective - Date & Time of Evaluation Time of Evaluation: 10:00 - Subjective Subjective: Patient was seen and examined at the bedside. Agree with resident's note above Objective - Vital Signs/Intake and Output Vital Signs (last 24 hours): Temp Pulse Resp BP Pulse Ox 98.2 F 63 18 103/66 100 07/08/16 07:46 07/08/16 07:46 07/08/16 07:46 07/08/16 07:46 07/08/16 07:46 - Medications Medications: Current Medications Diphenhydramine HCl (Benadryl) 25 mg IVP Q6 PRN PRN Reason: Itching / Pruritus Last Admin: 07/03/16 20:36 Dose: 25 mg Heparin Sodium (Porcine) (Heparin) 5,000 units SC Q8 ANTONIO PRN Reason: Protocol Last Admin: 07/08/16 09:24 Dose: 5,000 units Ketorolac Tromethamine (Toradol) 30 mg IVP Q6 ANTONIO Last Admin: 07/08/16 09:34 Dose: 30 mg Naloxone HCl (Narcan) 0.1 mg IVP Q2M PRN PRN Reason: Opiate reversal Ondansetron HCl (Zofran Inj) 4 mg IVP Q4 PRN PRN Reason: Nausea/Vomiting Last Admin: 07/07/16 21:56 Dose: 4 mg Oxycodone/Acetaminophen (Percocet 5/325 Mg Tab) 2 tab PO Q4 PRN PRN Reason: Pain, moderate (4-7) Stop: 07/10/16 15:48 Last Admin: 07/07/16 17:30 Dose: 2 tab - Labs Labs: 07/08/16 07:04 07/08/16 07:04
[2016-07-09] MEDS: DiphenhydrAMINE 50 mg/ml Inj IVP PRN (00:39)
--- NOTE | 2016-07-09 10:26 | CP.PCM.DIS ---
Provider - Provider Date of Admission: 07/01/16 12:43 Attending physician: Fazal Verduzco MD Primary care physician: NO FAMILY PROVIDER Time Spent in preparation of Discharge (in minutes): 55 Diagnosis - Discharge Diagnosis (1) Diverticulitis of small intestine with perforation and abscess without bleeding Status: Resolved Hospital Course - Lab Results Lab Results: Most Recent Lab Values WBC 9.7 K/uL (4.8-10.8) 07/08/16 07:04 RBC 4.65 Mil/uL (4.40-5.90) 07/08/16 07:04 Hgb 13.6 g/dL (12.0-18.0) 07/08/16 07:04 Hct 39.6 % (35.0-51.0) 07/08/16 07:04 MCV 85.1 fl (80.0-94.0) 07/08/16 07:04 MCH 29.3 pg (27.0-31.0) 07/08/16 07:04 MCHC 34.4 g/dL (33.0-37.0) 07/08/16 07:04 RDW 13.8 % (11.5-14.5) 07/08/16 07:04 Plt Count 263 K/uL (130-400) 07/08/16 07:04 MPV 8.0 fl (7.2-11.7) 07/08/16 07:04 Neut % (Auto) 65.3 % (50.0-75.0) 07/08/16 07:04 Lymph % (Auto) 20.0 % (20.0-40.0) 07/08/16 07:04 [place] % (Auto) 8.3 % (0.0-10.0) 07/08/16 07:04 Eos % (Auto) 6.0 % (0.0-4.0) H 07/08/16 07:04 Baso % (Auto) 0.4 % (0.0-2.0) 07/08/16 07:04 Neut # 6.3 K/uL (1.8-7.0) 07/08/16 07:04 Lymph # 1.9 K/uL (1.0-4.3) 07/08/16 07:04 [place] # 0.8 K/uL (0.0-0.8) 07/08/16 07:04 Eos # 0.6 K/uL (0.0-0.7) 07/08/16 07:04 Baso # 0.0 K/uL (0.0-0.2) 07/08/16 07:04 Neutrophils % (Manual) 85 % (42-75) H 07/01/16 15:58 Band Neutrophils % 4 % (0-2) H 07/01/16 15:58 Lymphocytes % (Manual) 6 % (20-50) L 07/01/16 15:58 Monocytes % (Manual) 5 % (0-10) 07/01/16 15:58 Platelet Estimate Normal (NORMAL) 07/01/16 15:58 Hypochromasia (manual) Slight 07/01/16 15:58 Microcytosis (manual) Slight 07/01/16 15:58 Sodium 138 mmol/l (132-148) 07/08/16 07:04 Potassium 4.8 MMOL/L (3.6-5.0) 07/08/16 07:04 Chloride 102 mmol/L (98-107) 07/08/16 07:04 Carbon Dioxide 25 mmol/L (22-30) 07/08/16 07:04 Anion Gap 16 (10-20) 07/08/16 07:04 BUN 14 mg/dl (9-20) 07/08/16 07:04 Creatinine 1.1 mg/dL (0.8-1.5) 07/08/16 07:04 Est GFR ( Amer) > 60 07/08/16 07:04 Est GFR (Non-Af Amer) > 60 07/08/16 07:04 Random Glucose 95 mg/dL (75-110) 07/08/16 07:04 Calcium 8.8 mg/dL (8.4-10.2) 07/08/16 07:04 Total Bilirubin 1.1 mg/dl (0.2-1.3) 07/04/16 05:30 AST 41 U/L (17-59) 07/04/16 05:30 ALT 53 U/L (21-72) 07/04/16 05:30 Alkaline Phosphatase 52 U/L (38-126) 07/04/16 05:30 Total Protein 5.9 G/DL (6.3-8.2) L 07/04/16 05:30 Albumin 3.3 g/dL (3.5-5.0) L 07/04/16 05:30 Globulin 2.6 gm/dL (2.2-3.9) 07/04/16 05:30 Albumin/Globulin Ratio 1.3 (1.0-2.1) 07/04/16 05:30 - Hospital Course Hospital Course: Patient was admitted on 07/01 for an elective reversal of his heartman's and colostomy. He tolerated the procedure well. POD 1-6 patient was on a liquid diet and was not passing gas. POD 6 patient was started on a regular diet reported flatus and bowel movement. His diet was advance to regular which he tolerated well. Patient has remained afebrile with normal vital signs. He has no acute comlaints and is clear for discharge wiuth followup from a surgical perspective. Discharge Exam - Head Exam Head Exam: ATRAUMATIC, NORMAL INSPECTION, NORMOCEPHALIC - Eye Exam Eye Exam: EOMI - Respiratory Exam Respiratory Exam: NORMAL BREATHING PATTERN - Cardiovascular Exam Cardiovascular Exam: REGULAR RHYTHM - GI/Abdominal Exam GI & Abdominal Exam: Normal Bowel Sounds. absent: Distended, Firm, Guarding Additional comments: Wound edges well approximated non erythematous with minimal drainage . - Neurological Exam Neurological exam: Alert, Oriented x3 - Psychiatric Exam Psychiatric exam: Normal Affect, Normal Mood - Skin Skin Exam: Dry, Normal Color Discharge Plan - Follow Up Plan Condition: GOOD Disposition: HOME/ ROUTINE Patient education suggested?: Yes Instructions: Open Colostomy Reversal (DC) Additional Instructions: Followup with Dr. Verduzco in 10 days. If you develop fevers, redness at the inscision sites, abdominal pain, or any other concerning symptoms please contact Dr. Verduzco or go to the emergency department. No heavy lifting over 20 lbs for 3 weeks. You can shower at your earliest convenience however no soaking (bath tub, or swimming). Take pain medication as directed on bottle. Referrals: FAMILY PROVIDER,NO [Primary Care Provider] -
[2016-07-09 15:57] VITALS: BP 102/67; PULSE 66; RESP 20; TEMP 98.7; O2SAT 99
== END 2016-07-09 17:25 | disposition home or self-care (01) | DRG 148 ==
LOC: H.OPSURG 05:57 → H.MEDSURG1 12:43
PROVIDERS: ADMIT Surgery; ATTEND Surgery
PROC: 0DQM0ZZ Repair Descending Colon, Open Approach (ICD-10-PCS; principal; 2016-07-01 07:45)
DX: K57.00 Diverticulitis of small intestine with perforation and abscess without bleeding (principal); K66.0 Peritoneal adhesions (postprocedural) (postinfection)

== ENCOUNTER 2017-05-06 22:56 | Observation (INO) | payer MEDICAID, OTHER ==
[2017-05-06 22:57] VITALS: BMI 28.8
[2017-05-06] MEDS ORDERED: Sodium Chloride 0.9% 1,000 ML IV STA (23:53)
[2017-05-06] MEDS ORDERED: Morphine 4 MG/ML VIAL IVP ONE (23:53)
[2017-05-06] MEDS ORDERED: Ciprofloxacin 400mg/200ml D5W 400 MG/200 ML BAG IV STA (23:54)
[2017-05-06] MEDS ORDERED: metroNIDAZOLE 500mg/100ml NS 100 ML IVPB STA (23:54)
[2017-05-07 00:12] LABS: BASO % 0.6 % (0.0-2.0); EOS # 0.5 K/uL (0.0-0.7); EOS % 6.4 % (0.0-4.0); HEMOGLOBIN 15.2 g/dL (12.0-18.0); LYMPH # 2.8 K/uL (1.0-4.3); LYMPH % 37.9 % (20.0-40.0); MEAN CELL VOLUME 86.9 fl (80.0-94.0); MEAN CORPUSCULAR HEMOGLOBIN 31.4 pg (27.0-31.0); MEAN CORPUSCULAR HGB CONC 36.1 g/dL (33.0-37.0); MEAN PLATELET VOLUME 8.7 fl (7.2-11.7); MONO # 0.5 K/uL (0.0-0.8); MONO % 7.1 % (0.0-10.0); NEUT # 3.6 K/uL (1.8-7.0); NRBC % 0.2 % (0.0-0.0); RBC 4.84 Mil/uL (4.40-5.90); RED CELL DISTRIBUTION WIDTH 12.7 % (11.5-14.5); WHITE BLOOD COUNT 7.4 K/uL (4.8-10.8)
[2017-05-07 00:23] LABS: ALB/GLOB RATIO 1.2 (1.0-2.1); ALBUMIN 3.9 g/dL (3.5-5.0); GFR AFRICAN-AMERICAN > 60; GFR NON-AFRICAN AMERICAN > 60; LIPASE 123 U/L (23-300)
[2017-05-07 00:24] LABS: ALT/SGPT 69 U/L (21-72); AST/SGOT 32 U/L (17-59); BLOOD UREA NITROGEN 20 mg/dl (9-20)
[2017-05-07] MEDS ORDERED: Morphine 4 MG/ML VIAL ONE ×2 (00:30→02:06)
[2017-05-07] MEDS ORDERED: Ciprofloxacin 400mg/200ml D5W 400 MG/200 ML BAG IVPB ONE (00:31)
[2017-05-07 00:34] LABS: PARTIAL THROMBOPLASTIN TIME 29.8 Seconds (25.6-37.1); PROTHROMBIN TIME 10.9 Seconds (9.8-13.1)
[2017-05-07] MEDS ORDERED: Sodium Chloride 0.9% 100 ML ONE (00:36)
[2017-05-07] MEDS ORDERED: Iohexol 300 100 ML IJ ONE (00:36)
--- NOTE | 2017-05-07 01:35 | CT ---
EXAM: CT Abdomen and Pelvis With Intravenous Contrast EXAM DATE/TIME: 05/06/2017 11:53 PM CLINICAL HISTORY: 41 years old, male; Pain; Abdominal pain; Localized; Left lower quadrant (llq); Prior surgery; Surgery date: 6+ months; Surgery type: Colon resection. Gall bladder removed; Additional info: Llq pain TECHNIQUE: Axial computed tomography images of the abdomen and pelvis with intravenous contrast. All CT scans at this facility use one or more dose reduction techniques, viz.: automated exposure control; ma/kV adjustment per patient size (including targeted exams where dose is matched to indication; i.e. head); or iterative reconstruction technique. Coronal and sagittal reformatted images were created and reviewed. CONTRAST: 95 mL of [id number] administered intravenously. COMPARISON: Prior CT abdomen and pelvis of 2016-04-15 FINDINGS: LOWER THORAX: Stable 6 mm noncalcified pulmonary nodule in the left lung base. In low-risk patients (minimal or absent history of smoking or other known risk factors), recommend chest CT follow-up at 6-12 months. If stable consider an additional follow-up CT at 18-24 months. For high-risk patients (history of smoking or other known risk factors), recommend chest CT follow-up in 6-12 months and then at 18-24 months. Heart appears mildly enlarged. Linear probable scarring in the right middle lobe. ABDOMEN: LIVER: Fatty infiltration of the liver. GALLBLADDER AND BILE DUCTS: Cholecystectomy clips. PANCREAS: No CT evidence of acute pancreatitis. SPLEEN: No acute abnormality of the spleen identified. ADRENALS: No acute abnormality of the adrenal glands identified. KIDNEYS AND URETERS: Incidental low density left renal lesion, measuring less than 10 mm. Consistent with the [employer]?s Incidental Findings Committee Report (J Am Gina Radiol 2010, unless the patient?s specific circumstances suggest otherwise, any cystic kidney lesion less than 1.0 cm not otherwise characterized in this report as possessing suspicious or indeterminate imaging features is/are highly likely to be benign and do not require follow-up imaging or biopsy. No acute abnormality of the kidneys identified. STOMACH AND BOWEL: Scattered, top normal caliber to mildly dilated small bowel loops seen, which appear interposed between normal caliber small bowel loops. No evidence of diffuse small bowel dilatation or a single abrupt transition point in the small bowel. No evidence of significant distal small bowel decompression. Findings are most likely secondary to a mild ileus of the small bowel, left likely a partial SBO. Surgical anastomosis in the proximal sigmoid colon. There is mild focal dilatation of the colon at the anastomosis, most likely chronic postsurgical dilatation. No evidence of a significant colonic obstruction. Colonic diverticulosis, with no evidence of acute diverticulitis. APPENDIX: Appendix is seen, and is within normal limits in appearance. PELVIS: BLADDER: No acute abnormality of the bladder identified. REPRODUCTIVE: No acute abnormality of the reproductive organs is seen. ABDOMEN and PELVIS: INTRAPERITONEAL SPACE: No evidence of free intraperitoneal air or fluid. BONES/JOINTS: No acute fractures or other acute bony abnormality noted. SOFT TISSUES: Findings compatible with post operative scarring involving the anterior abdominal and pelvic wall. VASCULATURE: No evidence of abdominal aortic aneurysm. No evidence of periaortic hemorrhage. LYMPH NODES: No evidence of diffuse lymphadenopathy. IMPRESSION: - Small bowel findings which are most likely secondary to a mild ileus, less likely a partial SBO. No evidence of a diffuse or high grade SBO. - Otherwise, no evidence of significant acute process. - Incidental 6 mm pumonary nodule. See recommendations above. - See above for remaining findings.
[2017-05-07] MEDS ORDERED: metroNIDAZOLE 500mg/100ml NS 100 ML IVPB ONE (01:42)
--- NOTE | 2017-05-07 02:33 | ED PDOC ---
HPI: Abdomen Time Seen by Provider: 05/06/17 23:39 Chief Complaint (Nursing): Abdominal Pain Chief Complaint (Provider): Abdominal Pain History Per: Patient Onset/Duration Of Symptoms: Days Current Symptoms Are (Timing): Still Present Location Of Pain/Discomfort: LLQ Quality Of Discomfort: "Pain" Associated Symptoms: Vomiting (hematemesis), Diarrhea (hematochezia) Last Bowel Movement: Other (Loose and watery) Additional Complaint(s): 41 y/o male with a history of diverticulitis presents to the ED with abdominal pain. Patient had a diverticulitis rupture about a year and a half ago causing an emergent bowel reconstruction and temporary colostomy bag. Patient complains of vomiting and diarrhea x2 days intermittently. Patient noticed blood in his vomit and diarrhea along with loose and watery stools. Patient complains of LLQ pain and took advil today with no relief. Patient denies blood clots, cough, SOB, chest pain, and fever. Past Medical History Vital Signs: Last Vital Signs Temp 98.1 F 05/07/17 15:55 Pulse 62 05/07/17 19:08 Resp 20 05/07/17 15:55 BP 101/84 05/07/17 19:08 Pulse Ox 97 05/07/17 19:08 - Medical History PMH: Arthritis, Diverticulitis (OF LARGE INTESTINE WITH PERFORATION ABSCESS), Gastritis, Gall Bladder Disease, GERD, Hypercholesterolemia, Kidney Stones, Pneumonia, Pneumothorax, Chronic Kidney Disease Denies: HIV - Surgical History Surgical History: Cholecystectomy - Family History Family History: States: Unknown Family Hx - Social History Current smoker - smoking cessation education provided: No Ex-Smoker (has not smoked in the last 12 months): No Alcohol: None Drugs: Denies - Immunization History Hx Tetanus Toxoid Vaccination: No Hx Influenza Vaccination: Yes Hx Pneumococcal Vaccination: No - Home Medications Home Medications: Ambulatory Orders Medication Instructions Recorded oxyCODONE/Acetaminophen [Percocet 1 tab PO Q6 PRN 05/07/17 5/325 mg Tab] - Allergies Allergies/Adverse Reactions: Allergies Allergy/AdvReac Type Severity Reaction Status Date / Time No Known Allergies Allergy Verified 05/06/17 23:11 Review of Systems ROS Statement: Except As Marked, All Systems Reviewed And Found Negative Constitutional: Negative for: Fever Cardiovascular: Negative for: Chest Pain Respiratory: Negative for: Cough, Shortness of Breath Gastrointestinal: Positive for: Vomiting (haematemesis), Diarrhea (hematochezia) Physical Exam - Reviewed Vital Signs Reviewed: Yes - Physical Exam Appears: Positive for: Uncomfortable Head Exam: Positive for: ATRAUMATIC Skin: Positive for: Normal Color, Warm, DRY Eye Exam: Positive for: EOMI, Normal appearance, PERRL ENT: Positive for: Normal ENT Inspection Neck: Positive for: Normal Cardiovascular/Chest: Positive for: Regular Rate, Rhythm Respiratory: Positive for: CNT, Normal Breath Sounds Gastrointestinal/Abdominal: Positive for: Tenderness (LLQ) Rectal: Positive for: Stool Is Heme: Extremity: Positive for: Normal ROM Neurologic/Psych: Positive for: Alert, Oriented - Laboratory Results Result Diagrams: 05/07/17 06:10 05/07/17 06:10 - ECG O2 Sat by Pulse Oximetry: 98 Medical Decision Making Medical Decision Makin:07 Initial Impression: Abdominal pain in setting of known diverticulitis disease with previous history of rupture requiring intestinal resection Initial Plan: * EKG * CMP * Surgical consult with Dr. Mallory * NPO Diet * CBC * UDip * Tylenol 650 Mg PO * Ciprofloxacin 400 Mg in 200 mL IV * Metronidazole 500 Mg IV * Morphine 4 mg IVP x1 6 mg IVP x1 * IV Fluids * Zofran 4 mg IV x3 * Blood culture Lab results showed no clinical significant findings, patient will be admitted for further pain management. Admitted to Dr. Styles who will be covering for patients main [facility] Dr. Lovett. Disposition - Clinical Impression Clinical Impression: Abdominal pain, Ileus - Patient ED Disposition Is Patient to be Admitted: Yes - Disposition Disposition Time: 02:22 Condition: FAIR - Pt Status Changed To: Hospital Disposition Of: Observation (OBS MED/SURG)
--- NOTE | 2017-05-07 04:16 | CP.PCM.CON ---
History of Present Illness - History of Present Illness History of Present Illness: SURGERY CONSULT FOR DR. PEREZ 41M presents with [facility] with abdominal pain that began last night. He states he went to his PMD for the pain who sent him for an outpatient CT scan. while drinking contrast for the scan he states the pain became worse and he became nauseous. He admits to vomiting to with blood tinged material which has not resolved. He also admits yesterday he had a bowel movement with had black blood also. He states he has chills but denies fevers. He is currently passing gas. PMH: Diverticulitis, PUD, HLD PSH: [place]mann[place] with reversal, cholecystectomy Social: Admits to tobacco, alcohol. Denies illicit drugs Allergies: NKDA Past Patient History - Infectious Disease Hx of Infectious Diseases: None - Tetanus Immunizations Tetanus Immunization: Unknown - Past Medical History & Family History Past Medical History?: Yes - Past Social History Smoking Status: Light Smoker < 10 Cigarettes Daily - CARDIAC Hx Hypercholesterolemia: Yes - PULMONARY Hx Pneumonia: Yes - NEUROLOGICAL Hx Neurological Disorder: No - HEENT Hx HEENT Problems: No - RENAL Hx Chronic Kidney Disease: Yes Hx Kidney Stones: Yes - ENDOCRINE/METABOLIC Hx Endocrine Disorders: No - HEMATOLOGICAL/ONCOLOGICAL Hx Human Immunodeficiency Virus (HIV): No - INTEGUMENTARY Hx Dermatological Problems: No - MUSCULOSKELETAL/RHEUMATOLOGICAL Hx Arthritis: Yes - GASTROINTESTINAL Hx Diverticulitis: Yes (OF LARGE INTESTINE WITH PERFORATION ABSCESS) Hx Gall Bladder Disease: Yes Hx Gastritis: Yes - GENITOURINARY/GYNECOLOGICAL Hx Genitourinary Disorders: No - PSYCHIATRIC Hx Psychophysiologic Disorder: No Hx Emotional Abuse: No Hx Physical Abuse: No Hx Substance Use: No - SURGICAL HISTORY Hx Cholecystectomy: Yes - ANESTHESIA Hx Anesthesia: Yes (HAVE HISTORY OF ASPIRATION PNUEMONIA) Meds Allergies/Adverse Reactions: Allergies Allergy/AdvReac Type Severity Reaction Status Date / Time No Known Allergies Allergy Verified 05/06/17 23:11 Physical Exam - Constitutional Appears: Well, Non-toxic, No Acute Distress - Head Exam Head Exam: ATRAUMATIC - ENT Exam ENT Exam: Mucous Membranes Moist - Respiratory Exam Respiratory Exam: Clear to Auscultation Bilateral, NORMAL BREATHING PATTERN - Cardiovascular Exam Cardiovascular Exam: REGULAR RHYTHM, +S1, +S2 - GI/Abdominal Exam GI & Abdominal Exam: Soft, Tenderness. absent: Distended, Firm, Guarding, Rebound, Rigid Additional comments: previous surgical scars noted - Rectal Exam Rectal Exam: NORMAL INSPECTION. absent: Black Stool, Bloody Stool, Hemorrhoids , Fecal Impaction - Extremities Exam Extremities exam: Negative for: pedal edema, tenderness - Neurological Exam Neurological exam: Alert, Oriented x3 - Psychiatric Exam Psychiatric exam: Normal Affect, Normal Mood - Skin Skin Exam: Dry, Intact, Normal Color, Warm Results - Vital Signs Recent Vital Signs: Last Vital Signs Temp 98.1 F 05/06/17 23:07 Pulse 65 05/06/17 23:07 Resp 18 05/06/17 23:07 BP 123/82 05/06/17 23:07 Pulse Ox 98 05/07/17 02:33 - Labs Result Diagrams: 05/07/17 00:08 05/07/17 00:08 Labs: Laboratory Results - last 24 hr 05/07/17 05/07/17 05/07/17 00:00 00:08 00:08 WBC 7.4 RBC 4.84 Hgb 15.2 Hct 42.0 MCV 86.9 MCH 31.4 H MCHC 36.1 RDW 12.7 Plt Count 217 MPV 8.7 Neut % (Auto) 48.0 L Lymph % (Auto) 37.9 [place] % (Auto) 7.1 Eos % (Auto) 6.4 H Baso % (Auto) 0.6 Neut # (Auto) 3.6 Lymph # (Auto) 2.8 [place] # (Auto) 0.5 Eos # (Auto) 0.5 Baso # (Auto) 0.0 PT INR APTT Sodium 141 Potassium 3.8 Chloride 103 Carbon Dioxide 24 Anion Gap 18 BUN 20 Creatinine 1.1 Est GFR ( Amer) > 60 Est GFR (Non-Af Amer) > 60 Random Glucose 110 Lactic Acid Calcium 9.0 Total Bilirubin 0.6 AST 32 ALT 69 Alkaline Phosphatase 85 Total Protein 7.2 Albumin 3.9 Globulin 3.3 Albumin/Globulin Ratio 1.2 Lipase 123 Alcohol, Quantitative < 10 Blood Type B POSITIVE Antibody Screen Negative BBK History Checked Patient has bt 05/07/17 05/07/17 00:08 00:08 WBC RBC Hgb Hct MCV MCH MCHC RDW Plt Count MPV Neut % (Auto) Lymph % (Auto) [place] % (Auto) Eos % (Auto) Baso % (Auto) Neut # (Auto) Lymph # (Auto) [place] # (Auto) Eos # (Auto) Baso # (Auto) PT 10.9 INR 1.0 APTT 29.8 Sodium Potassium Chloride Carbon Dioxide Anion Gap BUN Creatinine Est GFR ( Amer) Est GFR (Non-Af Amer) Random Glucose Lactic Acid 1.8 Calcium Total Bilirubin AST ALT Alkaline Phosphatase Total Protein Albumin Globulin Albumin/Globulin Ratio Lipase Alcohol, Quantitative Blood Type Antibody Screen BBK History Checked Assessment & Plan - Assessment and Plan (Free Text) Assessment: 41M with possible ileus as seen on CT scan Plan: - NPO, IVF - Pain control, anti emetics - Await further bowel function - recommend GI consult. poss colonoscopy for hx of bloody stool Further recs discuss with Dr. Nabor Tony, PGY2
[2017-05-07 04:31] LABS: BARBITURATES, UR NEGATIVE (NEGATIVE); BENZODIAZEPINES, UR NEGATIVE (NEGATIVE); OPIATES, UR POSITIVE (NEGATIVE); PHENCYCLIDINE, UR NEGATIVE (NEGATIVE)
[2017-05-07] MEDS ORDERED: Pneumococcal 23-Valent Vaccine IM ONE (05:07)
[2017-05-07] MEDS: Sodium Chloride 0.9% 1,000 ML IV SCH ×3 (05:11→21:13)
[2017-05-07] MEDS ORDERED: Influenza Vaccine 18yr & older 0.5 ML/45 MCG SYR IM ONE (05:17)
[2017-05-07 06:44] LABS: HEMOGLOBIN 13.4 g/dL (12.0-18.0); MEAN CELL VOLUME 87.1 fl (80.0-94.0); MEAN CORPUSCULAR HEMOGLOBIN 30.7 pg (27.0-31.0); MEAN CORPUSCULAR HGB CONC 35.3 g/dL (33.0-37.0); RBC 4.37 Mil/uL (4.40-5.90); RED CELL DISTRIBUTION WIDTH 13.1 % (11.5-14.5); WHITE BLOOD COUNT 6.1 K/uL (4.8-10.8)
[2017-05-07 06:48] LABS: BLOOD UREA NITROGEN 18 mg/dl (9-20)
[2017-05-07 06:49] LABS: ALB/GLOB RATIO 1.2 (1.0-2.1); ALBUMIN 3.3 g/dL (3.5-5.0); ALT/SGPT 59 U/L (21-72); AST/SGOT 30 U/L (17-59); CALCIUM 8.1 mg/dL (8.4-10.2); GFR AFRICAN-AMERICAN > 60; GFR NON-AFRICAN AMERICAN > 60
[2017-05-07] MEDS: metroNIDAZOLE 500mg/100ml NS 100 ML IVPB SCH ×2 (08:56→17:56)
[2017-05-07] MEDS: Ciprofloxacin 400mg/200ml D5W 400 MG/200 ML BAG IVPB SCH ×2 (08:57→21:14)
--- NOTE | 2017-05-07 09:57 | CARD ---
APPROVED REPORT EKG Measurement Heart [id number] <Conclusion> Normal sinus rhythm Minimal voltage criteria for LVH, may be normal variant Borderline ECG
--- NOTE | 2017-05-07 23:43 | CP.PCM.HP ---
Past Patient History - Infectious Disease Hx of Infectious Diseases: None - Tetanus Immunizations Tetanus Immunization: Unknown - Past Medical History & Family History Past Medical History?: Yes - Past Social History Alcohol: None Drugs: Denies - CARDIAC Hx Hypercholesterolemia: Yes - PULMONARY Hx Pneumonia: Yes - NEUROLOGICAL Hx Neurological Disorder: No - HEENT Hx HEENT Problems: No - RENAL Hx Chronic Kidney Disease: Yes Hx Kidney Stones: Yes - ENDOCRINE/METABOLIC Hx Endocrine Disorders: No - HEMATOLOGICAL/ONCOLOGICAL Hx Human Immunodeficiency Virus (HIV): No - INTEGUMENTARY Hx Dermatological Problems: No - MUSCULOSKELETAL/RHEUMATOLOGICAL Hx Arthritis: Yes - GASTROINTESTINAL Hx Diverticulitis: Yes (OF LARGE INTESTINE WITH PERFORATION ABSCESS) Hx Gall Bladder Disease: Yes Hx Gastritis: Yes - GENITOURINARY/GYNECOLOGICAL Hx Genitourinary Disorders: No - PSYCHIATRIC Hx Psychophysiologic Disorder: No Hx Emotional Abuse: No Hx Physical Abuse: No Hx Substance Use: No - SURGICAL HISTORY Hx Cholecystectomy: Yes - ANESTHESIA Hx Anesthesia: Yes (HAVE HISTORY OF ASPIRATION PNUEMONIA) Hx Anesthesia Reactions: No Hx Malignant Hyperthermia: No Has any member of the family had a problem w/ anesthesia?: No Meds Allergies/Adverse Reactions: Allergies Allergy/AdvReac Type Severity Reaction Status Date / Time No Known Allergies Allergy Verified 05/06/17 23:11 Results - Vital Signs Recent Vital Signs: Last Vital Signs Temp 98.1 F 05/07/17 15:55 Pulse 62 05/07/17 19:08 Resp 20 05/07/17 15:55 BP 101/84 05/07/17 19:08 Pulse Ox 98 05/07/17 21:07 - Labs Result Diagrams: 05/07/17 06:10 05/07/17 06:10 Labs: Laboratory Results - last 24 hr 05/07/17 05/07/17 05/07/17 00:00 00:08 00:08 WBC 7.4 RBC 4.84 Hgb 15.2 Hct 42.0 MCV 86.9 MCH 31.4 H MCHC 36.1 RDW 12.7 Plt Count 217 MPV 8.7 Neut % (Auto) 48.0 L Lymph % (Auto) 37.9 [place] % (Auto) 7.1 Eos % (Auto) 6.4 H Baso % (Auto) 0.6 Neut # (Auto) 3.6 Lymph # (Auto) 2.8 [place] # (Auto) 0.5 Eos # (Auto) 0.5 Baso # (Auto) 0.0 PT INR APTT Sodium 141 Potassium 3.8 Chloride 103 Carbon Dioxide 24 Anion Gap 18 BUN 20 Creatinine 1.1 Est GFR ( Amer) > 60 Est GFR (Non-Af Amer) > 60 Random Glucose 110 Lactic Acid Calcium 9.0 Total Bilirubin 0.6 AST 32 ALT 69 Alkaline Phosphatase 85 Total Protein 7.2 Albumin 3.9 Globulin 3.3 Albumin/Globulin Ratio 1.2 Lipase 123 Urine Opiates Screen Urine Methadone Screen Ur Barbiturates Screen Ur Phencyclidine Scrn Ur Amphetamines Screen U Benzodiazepines Scrn U Oth Cocaine Metabols U Cannabinoids Screen Alcohol, Quantitative < 10 Blood Type B POSITIVE Antibody Screen Negative BBK History Checked Patient has bt 05/07/17 05/07/17 05/07/17 00:08 00:08 03:50 WBC RBC Hgb Hct MCV MCH MCHC RDW Plt Count MPV Neut % (Auto) Lymph % (Auto) [place] % (Auto) Eos % (Auto) Baso % (Auto) Neut # (Auto) Lymph # (Auto) [place] # (Auto) Eos # (Auto) Baso # (Auto) PT 10.9 INR 1.0 APTT 29.8 Sodium Potassium Chloride Carbon Dioxide Anion Gap BUN Creatinine Est GFR ( Amer) Est GFR (Non-Af Amer) Random Glucose Lactic Acid 1.8 Calcium Total Bilirubin AST ALT Alkaline Phosphatase Total Protein Albumin Globulin Albumin/Globulin Ratio Lipase Urine Opiates Screen Positive H Urine Methadone Screen Negative Ur Barbiturates Screen Negative Ur Phencyclidine Scrn Negative Ur Amphetamines Screen Negative U Benzodiazepines Scrn Negative U Oth Cocaine Metabols Positive H U Cannabinoids Screen Negative Alcohol, Quantitative Blood Type Antibody Screen BBK History Checked 05/07/17 05/07/17 06:10 06:10 WBC 6.1 RBC 4.37 L Hgb 13.4 Hct 38.1 MCV 87.1 MCH 30.7 MCHC 35.3 RDW 13.1 Plt Count 170 MPV Neut % (Auto) Lymph % (Auto) [place] % (Auto) Eos % (Auto) Baso % (Auto) Neut # (Auto) Lymph # (Auto) [place] # (Auto) Eos # (Auto) Baso # (Auto) PT INR APTT Sodium 141 Potassium 4.0 Chloride 106 Carbon Dioxide 22 Anion Gap 17 BUN 18 Creatinine 1.0 Est GFR ( Amer) > 60 Est GFR (Non-Af Amer) > 60 Random Glucose 102 Lactic Acid Calcium 8.1 L Total Bilirubin 0.5 AST 30 ALT 59 Alkaline Phosphatase 67 Total Protein 6.0 L Albumin 3.3 L Globulin 2.7 Albumin/Globulin Ratio 1.2 Lipase Urine Opiates Screen Urine Methadone Screen Ur Barbiturates Screen Ur Phencyclidine Scrn Ur Amphetamines Screen U Benzodiazepines Scrn U Oth Cocaine Metabols U Cannabinoids Screen Alcohol, Quantitative Blood Type Antibody Screen BBK History Checked
[2017-05-08] MEDS: metroNIDAZOLE 500mg/100ml NS 100 ML IVPB SCH ×3 (00:09→16:24)
[2017-05-08] MEDS: Sodium Chloride 0.9% 1,000 ML IV SCH (00:15)
--- NOTE | 2017-05-08 06:38 | CP.PCM.PN ---
Subjective - Date & Time of Evaluation Date of Evaluation: 05/08/17 Time of Evaluation: 06:36 - Subjective Subjective: General Surgery Progress Note for Dr. Tomlin This 41M was seen and examined this Am at bedside no acute events overnight. PT had BM last night tolerating clears. Denies any neause or vomiting. Denies chest pain SOB. Only complaint at this time is weakness. Objective - Vital Signs/Intake and Output Vital Signs (last 24 hours): Temp Pulse Resp BP Pulse Ox 97.7 F 19 L 19 115/73 96 05/08/17 00:00 05/08/17 00:00 05/08/17 00:00 05/08/17 00:00 05/08/17 00:00 - Medications Medications: Current Medications Acetaminophen (Tylenol 325mg Tab) 650 mg PO Q4 PRN PRN Reason: Pain, Mild (1-3) Ciprofloxacin (Cipro 400mg/200ml Dsw) 400 mg in 200 mls @ 200 mls/hr IVPB Q12 ANTONIO PRN Reason: Protocol Last Admin: 05/07/17 21:14 Dose: 200 mls/hr Metronidazole (Flagyl 500mg/100ml Ns) 100 mls @ 100 mls/hr IVPB Q8 ANTONIO PRN Reason: Protocol Last Admin: 05/08/17 00:09 Dose: 100 mls/hr Ketorolac Tromethamine (Toradol) 15 mg IVP Q6 PRN PRN Reason: Pain, moderate (4-7) Last Admin: 05/07/17 10:44 Dose: 15 mg Ketorolac Tromethamine (Toradol) 30 mg IVP Q6 PRN PRN Reason: Pain, severe (8-10) Last Admin: 05/07/17 19:28 Dose: 30 mg Ondansetron HCl (Zofran Inj) 4 mg IVP Q4 PRN PRN Reason: Nausea/Vomiting Last Admin: 05/07/17 21:13 Dose: 4 mg Pantoprazole Sodium (Protonix Inj) 40 mg IVP Q12 ANTONIO Last Admin: 05/07/17 22:25 Dose: 40 mg - Labs Labs: 05/07/17 06:10 05/07/17 06:10 PT 10.9 Seconds (9.8-13.1) 05/07/17 00:08 INR 1.0 (0.9-1.2) 05/07/17 00:08 APTT 29.8 Seconds (25.6-37.1) 05/07/17 00:08 - Constitutional Appears: Well, Non-toxic, No Acute Distress - Head Exam Head Exam: ATRAUMATIC - ENT Exam ENT Exam: Mucous Membranes Moist - Respiratory Exam Respiratory Exam: Clear to Auscultation Bilateral, NORMAL BREATHING PATTERN - Cardiovascular Exam Cardiovascular Exam: REGULAR RHYTHM, +S1, +S2 - GI/Abdominal Exam GI & Abdominal Exam: Soft, Tenderness. absent: Distended, Firm, Guarding, Rebound, Rigid Additional comments: previous surgical scars noted - Rectal Exam Rectal Exam: NORMAL INSPECTION. absent: Black Stool, Bloody Stool, Hemorrhoids , Fecal Impaction - Extremities Exam Extremities exam: Negative for: pedal edema, tenderness - Neurological Exam Neurological exam: Alert, Oriented x3 - Psychiatric Exam Psychiatric exam: Normal Affect, Normal Mood - Skin Skin Exam: Dry, Intact, Normal Color, Warm Assessment and Plan - Assessment and Plan (Free Text) Assessment: 41M with possible ileus as seen on CT scan Plan: - CLD - Pain control, anti emetics - Monitor BM - recommend GI consult. poss colonoscopy for hx of bloody stool D/W Dr. Nabor Shrestha PGY2
[2017-05-08 08:13] VITALS: RESP 20
[2017-05-08] MEDS: Ciprofloxacin 400mg/200ml D5W 400 MG/200 ML BAG IVPB SCH ×2 (09:21→21:19)
--- NOTE | 2017-05-08 22:55 | CP.PCM.PN ---
Subjective - Date & Time of Evaluation Date of Evaluation: 05/08/17 Time of Evaluation: 18:30 Objective - Vital Signs/Intake and Output Vital Signs (last 24 hours): Temp Pulse Resp BP Pulse Ox 98.4 F 60 20 111/71 98 05/08/17 16:33 05/08/17 16:33 05/08/17 16:33 05/08/17 16:33 05/08/17 16:33 - Medications Medications: Current Medications Acetaminophen (Tylenol 325mg Tab) 650 mg PO Q4 PRN PRN Reason: Pain, Mild (1-3) Ciprofloxacin (Cipro 400mg/200ml Dsw) 400 mg in 200 mls @ 200 mls/hr IVPB Q12 ANTONIO PRN Reason: Protocol Last Admin: 05/08/17 21:19 Dose: 200 mls/hr Metronidazole (Flagyl 500mg/100ml Ns) 100 mls @ 100 mls/hr IVPB Q8 ANTONIO PRN Reason: Protocol Last Admin: 05/08/17 16:24 Dose: 100 mls/hr Ketorolac Tromethamine (Toradol) 15 mg IVP Q6 PRN PRN Reason: Pain, moderate (4-7) Last Admin: 05/07/17 10:44 Dose: 15 mg Ketorolac Tromethamine (Toradol) 30 mg IVP Q6 PRN PRN Reason: Pain, severe (8-10) Last Admin: 05/08/17 12:15 Dose: 30 mg Ondansetron HCl (Zofran Inj) 4 mg IVP Q4 PRN PRN Reason: Nausea/Vomiting Last Admin: 05/08/17 13:19 Dose: 4 mg Pantoprazole Sodium (Protonix Inj) 40 mg IVP Q12 ANTONIO Last Admin: 05/08/17 21:20 Dose: 40 mg - Labs Labs: 05/07/17 06:10 05/07/17 06:10 PT 10.9 Seconds (9.8-13.1) 05/07/17 00:08 INR 1.0 (0.9-1.2) 05/07/17 00:08 APTT 29.8 Seconds (25.6-37.1) 05/07/17 00:08
[2017-05-09] MEDS: metroNIDAZOLE 500mg/100ml NS 100 ML IVPB SCH ×2 (01:21→08:17)
[2017-05-09 08:02] VITALS: BP 104/67; PULSE 54; TEMP 98.1; O2SAT 97
[2017-05-09] MEDS: Ciprofloxacin 400mg/200ml D5W 400 MG/200 ML BAG IVPB SCH (08:18)
--- NOTE | 2017-05-09 08:49 | CON ---
DATE: 05/07/2017 REFERRING DOCTOR: Dr. Styles REASON FOR CONSULTATION: Abdominal pain. HISTORY OF PRESENT ILLNESS: This is a pleasant 41-year-old male with a history of abdominal pain. The patient has a history of who comes in with pain and discomfort last night, basically had some nausea and vomiting, all symptoms resolved, passing flatus. Currently lying in bed comfortable, in no apparent distress. PAST MEDICAL HISTORY: As above. PAST SURGICAL HISTORY: As above. MEDICATIONS: Have been reviewed. REVIEW OF SYSTEMS: All other systems have been reviewed and negative apart from the HPI. PHYSICAL EXAMINATION: VITAL SIGNS: Here in the hospital are grossly unremarkable. GENERAL: A pleasant middle age male, lying in bed comfortably, in no apparent distress. HEENT: Head is normocephalic and atraumatic. Eyes; pupils are equally reactive to light bilaterally. No conjunctival pallor or icterus. NECK: Supple. Normal range of motion. No lymphadenopathy appreciated. LUNGS: Coarse breath sounds bilaterally. HEART: S1 and S2, regular rate and rhythm. No murmurs appreciated. ABDOMEN: Soft and tympany. Bowel sounds present. No rebound. No guarding. RECTAL: Deferred. EXTREMITIES: Pulses present bilaterally. SKIN: Warm, dry and intact. NEUROLOGIC: A and O x3. LABORATORY DATA: All labs and radiology have been reviewed. CAT scan shows small bowel findings likely to mild ileus less likely partial SBO. Labs include WBC is 6.1, hemoglobin is 13.4, and hematocrit is 38.1. U-tox is positive for cocaine and opioids. ASSESSMENT AND PLAN: This is a 41-year-old male with abdominal pain and ileus. From gastrointestinal standpoint, surgical consult appreciated, n.p.o. for now, and follow up with me as an outpatient for possible endoscopy and/or colonoscopy. Thank you for the consult. Sharath Haskins MD/ PhD cc:
--- NOTE | 2017-05-09 09:02 | CP.PCM.PN ---
Subjective - Date & Time of Evaluation Date of Evaluation: 05/09/17 Time of Evaluation: 07:05 - Subjective Subjective: General Surgery Progress Note for Dr. Tomlin Patient seen and examined at bedside. No acute events overnight. Patient denies pain. He is tolerating liquid diet. Patient states he had one BM yesterday. Denies any nausea or vomiting. Objective - Vital Signs/Intake and Output Vital Signs (last 24 hours): Temp Pulse Resp BP Pulse Ox 98.1 F 54 L 20 104/67 97 05/09/17 08:01 05/09/17 08:01 05/09/17 08:01 05/09/17 08:01 05/09/17 08:01 - Medications Medications: Current Medications Acetaminophen (Tylenol 325mg Tab) 650 mg PO Q4 PRN PRN Reason: Pain, Mild (1-3) Ciprofloxacin (Cipro 400mg/200ml Dsw) 400 mg in 200 mls @ 200 mls/hr IVPB Q12 ANTONIO PRN Reason: Protocol Last Admin: 05/09/17 08:18 Dose: 200 mls/hr Metronidazole (Flagyl 500mg/100ml Ns) 100 mls @ 100 mls/hr IVPB Q8 ANTONIO PRN Reason: Protocol Last Admin: 05/09/17 08:17 Dose: 100 mls/hr Ketorolac Tromethamine (Toradol) 15 mg IVP Q6 PRN PRN Reason: Pain, moderate (4-7) Last Admin: 05/07/17 10:44 Dose: 15 mg Ketorolac Tromethamine (Toradol) 30 mg IVP Q6 PRN PRN Reason: Pain, severe (8-10) Last Admin: 05/09/17 01:46 Dose: 30 mg Ondansetron HCl (Zofran Inj) 4 mg IVP Q4 PRN PRN Reason: Nausea/Vomiting Last Admin: 05/08/17 13:19 Dose: 4 mg Pantoprazole Sodium (Protonix Inj) 40 mg IVP Q12 ANTONIO Last Admin: 05/09/17 08:18 Dose: 40 mg - Labs Labs: 05/07/17 06:10 05/07/17 06:10 PT 10.9 Seconds (9.8-13.1) 05/07/17 00:08 INR 1.0 (0.9-1.2) 05/07/17 00:08 APTT 29.8 Seconds (25.6-37.1) 05/07/17 00:08 - Constitutional Appears: No Acute Distress - Head Exam Head Exam: ATRAUMATIC, NORMOCEPHALIC - Eye Exam Eye Exam: Normal appearance - ENT Exam ENT Exam: Mucous Membranes Moist - Respiratory Exam Respiratory Exam: NORMAL BREATHING PATTERN - Cardiovascular Exam Cardiovascular Exam: REGULAR RHYTHM - GI/Abdominal Exam GI & Abdominal Exam: Soft. absent: Distended, Firm, Guarding, Tenderness, Rebound - Neurological Exam Neurological Exam: Alert, Awake, Oriented x3 - Psychiatric Exam Psychiatric exam: Normal Affect, Normal Mood - Skin Skin Exam: Dry, Intact, Normal Color, Warm Assessment and Plan - Assessment and Plan (Free Text) Plan: 41M with possible ileus as seen on CT scan -Liquid diet, ADAT -Analgesics/anti-emetics PRN -Monitor for bowel function -f/u GO recommendations -discussed with Dr. Nabor Langley PGY1
== END 2017-05-09 13:28 | disposition home or self-care (01) ==
LOC: H.ER 22:56 → H.ERHOLD 05-07 02:22 → H.MEDSURG1 05-07 04:50
PROVIDERS: ADMIT Internal Medicine; ATTEND Internal Medicine
DX: K56.7 Ileus, unspecified (principal); N18.9 Chronic kidney disease, unspecified; Z87.01 Personal history of pneumonia (recurrent); Z23 Encounter for immunization; E78.5 Hyperlipidemia, unspecified; Z87.11 Personal history of peptic ulcer disease; Z87.442 Personal history of urinary calculi; Z87.891 Personal history of nicotine dependence; Z90.49 Acquired absence of other specified parts of digestive tract; K21.9 Gastro-esophageal reflux disease without esophagitis; K29.70 Gastritis, unspecified, without bleeding; M19.90 Unspecified osteoarthritis, unspecified site; E78.00 Pure hypercholesterolemia, unspecified
CPT/HCPCS: 74177; 80053; 80320; 80324; 80345; 80346; 80349; 80353; 80358; 80361; 83605; 83690; 83992; 85025; 85027; 85610; 85730; 86850; 86900; 87040; 90471; 93005; 96361; 96365; 96366; 96367; 96375; 96376; 99281; C9113; G0328; G0378; J0744; J1885; J2270; J2405; J7040; Q2035; Q9967